=== PATIENT | male | born 1955 | race Caucasian/White ===

== ENCOUNTER 2018-02-06 09:44 | Emergency (ER) | payer BC, SELFPAY ==
[2018-02-06 09:48] VITALS: BP 123/77; PULSE 70; RESP 17; TEMP 36.9; O2SAT 93; BMI 34.9
--- NOTE | 2018-02-06 10:04 | ED.VISSUMM ---
- ER Visit Summary Date of Service: 02/06/18 Chief Complaint: [] Elbow olecranon swelling after bumped it History of Present Illness: The patient is a 62 M [] reports no past history indicates he simply bumped his right elbow against what appears to be a blunt object he noticed swelling that persisted he came in for evaluation he has no loss of function no pain no radiation to his hand he is otherwise review of systems are negative Physical Examination: [] Signs are within normal range she is in no distress head neck chest unremarkable the right upper extremity there is obvious swelling over the right olecranon bursa it is about the size of a small plum it is not warm it is not infected the skin is completely intact his elbow function is completely normal forearm wrist and hand function normal thumb function normal sensation normal shoulder exam normal he has no other complaints Test Results: [] Emergency Department Course and Treatment: [] All the above to him We could obtain an x-ray but there is no signs of elbow fracture as he has no pain with full range of motion of the extremity, at this time is placed in a snug Damien wrap ice elevation he will take nonsteroidals for pain [id number] as he wants no prescriptions and he has orthopedic surgeons that he has seen in the area and he will follow-up with and return for change in symptoms Treatment Plan: [] Disposition: [] Stable home Impression: [] tramatic right olecranon bursitis This note was generated with [employer] dictation software. It may contain incorrect words, spelling, and punctuation that were not noted in review of the chart prior to signing ED Disposition - Plan for ED Patient: Chief Complaint: Upper Extremity Injury Referrals: Tyron Pagan [Primary Care Provider] -
--- NOTE | 2018-02-06 10:06 | ED.DEP ---
ED Disposition - Plan for ED Patient: Chief Complaint: Upper Extremity Injury Instructions: ED Bursitis Elbow Olecranon Referrals: Tyron Pagan [Primary Care Provider] -
[2018-02-06 10:54] VITALS: PULSE 74; RESP 16; O2SAT 94
== END 2018-02-06 10:57 | disposition home or self-care (01) ==
PROVIDERS: Emergency Provider Emergency Medicine; Family Provider Internal Medicine; PCP Internal Medicine
DX: M70.21 Olecranon bursitis, right elbow (principal); Y93.89 Activity, other specified
CPT/HCPCS: 99282